=== PATIENT | female | born 1985 | race Hispanic/Latino ===

== ENCOUNTER 2018-06-06 09:45 | Inpatient (IN) | payer MEDICAID, OTHER ==
[2018-06-06 10:12] VITALS: BMI 30.9
--- NOTE | 2018-06-06 10:34 | C.PDOC ---
History Of Present Illness Patient transferred from outside facility for psych admission. Patient reports heroin overdose yesterday requiring narcan. Also reports using crack cocaine yesterday. Currently denying that she overdosed for self harm, and currently denies SI/HI. Complains of migraine, states this is not new, she usually takes Excedrin daily for headaches. No other complaints. Time Seen by Provider: 06/06/18 10:02 Chief Complaint (Nursing): Psychiatric Evaluation History Per: Patient Past Medical History Reviewed: Historical Data, Nursing Documentation, Vital Signs Vital Signs: Last Vital Signs Temp 98.3 F 06/06/18 09:51 Pulse 79 06/06/18 09:51 Resp 18 06/06/18 09:51 BP 122/84 06/06/18 09:51 Pulse Ox 96 06/06/18 09:51 KARLOS Report Viewed: Yes - Medical History PMH: Depression Family History: States: Unknown Family Hx - Social History Hx Alcohol Use: No Hx Substance Use: Yes - Immunization History Hx Tetanus Toxoid Vaccination: No Hx Influenza Vaccination: No Review Of Systems Except As Marked, All Systems Reviewed And Found Negative. Constitutional: Negative for: Fever, Chills Cardiovascular: Negative for: Chest Pain Respiratory: Negative for: Cough, Shortness of Breath Gastrointestinal: Negative for: Nausea, Vomiting Neurological: Positive for: Headache. Negative for: Weakness, Numbness Psych: Negative for: Suicidal ideation Physical Exam - Physical Exam Appears: Well, No Acute Distress Skin: Normal Color, Warm, Dry Head: Atraumatic Eye(s): bilateral: Normal Inspection Oral Mucosa: Moist Chest: Symmetrical Cardiovascular: Rhythm Regular Respiratory: Normal Breath Sounds Gastrointestinal/Abdominal: Normal Exam Extremity: Normal ROM Neurological/Psych: Oriented x3 Gait: Steady ED Course And Treatment O2 Sat by Pulse Oximetry: 96 Medical Decision Making Medical Decision Making: Spoke to crisis, patient can be admitted to psych for major depressive disorder, under Dr. Holloway. Disposition - Disposition Disposition: HOSPITALIZED Disposition Time: 10:30 Condition: GOOD - Clinical Impression Clinical Impression: Major depression
--- NOTE | 2018-06-06 12:22 | PCM.BM ---
<Eve Fuentesn - Last Filed: 06/06/18 12:19> Treatment Plan Problems - Problems identified on initial assessmt Depression Date Initiated: 06/06/18 Time Initiated: 12:20 Assessment reference: NA Status: Active Anxiety related to substance abuse Date Initiated: 06/06/18 Time Initiated: 12:20 Assessment reference: NA Status: Active Ineffective coping Date Initiated: 06/06/18 Time Initiated: 12:20 Assessment reference: NA Status: Active Treatment assets and liabiliti Patient Assests: cooperative, educated, ADL independent, physically healthy, good support system, negotiates basic needs, cognitively intact, strong camilo Patient Liabilities: physical pain, substance abuse - Milieu Protocol Maintain good personal hygiene: daily Encourage regular showers, daily Remind patient to perform daily oral care, daily Assist patient to perform ADL's Conduct patient checks and document Observation sheet: Q15 minutes Maintain personal safety: every shift Educate patient to report safety concerns to staff, every shift Monitor environment for contraband/sharps Medication safety: Monitor for expected outcome, potential side effects: every shift, Assess barriers to learning: every shift, Assess readiness for medication education: every shift <Gaviota Schmidt - Last Filed: 06/08/18 11:40> Family Contact Family involvement: Family/SO is involved Family contact: Patient agrees to contact Family contact name: Lanie Paredes-aunt - Goals for Treatment Patient goals for treatment: "I want to go to rehab." Discharge/Continuing Care - Education Needs Education Needs: Patient Medication, Patient Coping Skills, Patient Placement options, Patient Community resources - Discharge Discharge Criteria: Tolerates medication w/o severe side effects, No longer ex hibiting s/s of withdrawal Discharge to:: Substance Abuse Rehab - Treatment Team Participation Discussed with Family/SO: Yes Was Patient/Family/SO present at Treatment Team Meeting: Yes
[2018-06-06] MEDS ORDERED: Aluminum Hydroxide/Magnesium Hydroxide Susp (30 mL) PO PRN (15:15)
[2018-06-06] MEDS: buPROPion 150 mg/24 Hours XL Tab PO SCH (15:56)
--- NOTE | 2018-06-06 16:30 | PCM.PSYCH ---
Initial Psychiatric Evaluation - Initial Psychiatric Evaluation Type of Admission: Voluntary Legal Status: Capacity Chief Complaint (in patient's own words): I overdosed on heroine. History of Present Illness and Precipitating Events: Patient is a 33 years old, single, unemployed, female who was admitted due to worsening of depression and overdosed on heroin. Patient reported history of depression and anxiety for last 10 years, also history of ADD. Reported compliant with treatment including BuSpar 10 mg twice a day, Cymbalta 60 mg twice a day, gabapentin 800 mg 4 times a day. Patient reported she is in a rehab in [place] for last 13months, came home on pass and relapsed on heroin. Started feeling depressed with decreased sleep and appetite. Denied any previous or current suicidal ideation or homicidal ideations, no suicide attempts. Patient reported hopeless crying at time and gated about relapse. Patient has history of one previous admission. Opioid: Started at 24 years of age, increase gradually and was using 5 bundles of heroin daily, IV. Her last use was yesterday, 2 bags of fentanyl, required Narcan twice according to patient. Patient relapsed. No gas. Of abstinence for 7 months from April to December 2017. History of more than 10 detox and more than 10 rehabs. Patient was also on Suboxone in the past until 1-1/2-year ago. Patient was on Suboxone for over 2 years before that. Cocaine: Started at 21 years of age, 1 $50 per day. Last used yesterday, smoking. Cannabis: Patient reported last use was 18 months ago. Before that she was smoking daily $30 worth every day. Alcohol: Last drink was 18 months ago, before that she was drinking 1 bottle of wine daily. Cigarettes: Smokes 1 pack of cigarettes daily and is requesting for nicotine patch. Patient has history of left knee surgery. Patient has history of shoplifting charges in the past. Not on probation. Patient was born in [place] and has bachelors degree. Her last job was 18 months ago. She is supported by her mother. Never and has no children. Her height is 5 feet 4 inches and weight is 180 pounds. Current Medications: Active Medications Generic Name Dose Route Start Last Admin Trade Name Freq PRN Reason Stop Dose Admin Al Hydrox/Mg Hydrox/Simethicone 30 ml 06/06/18 15:15 Maalox 30 Ml PO TID PRN Indigestion / Heartburn Bupropion HCl 150 mg 06/06/18 15:15 06/06/18 15:56 Wellbutrin Xl PO 150 mg DAILY HELEN Administration Clonidine HCl 0.1 mg 06/06/18 15:15 Catapres PO Q4 PRN COWS Score More or Equal to 5 Dicyclomine HCl 10 mg 06/06/18 15:40 Bentyl PO Q6 PRN Muscle spasm Duloxetine HCl 60 mg 06/06/18 18:00 Cymbalta PO BID HELEN Gabapentin 800 mg 06/06/18 18:00 Neurontin PO QID HELEN Ibuprofen 600 mg 06/06/18 15:15 06/06/18 15:56 Motrin Tab PO 600 mg Q6 PRN Administration Pain, moderate (4-7) Loperamide HCl 2 mg 06/06/18 15:41 Imodium PO Q8 PRN Diarrhea Nicotine 1 patch 06/06/18 15:30 06/06/18 15:55 Nicoderm Cq TD 1 patch DAILY HELEN Administration Ondansetron HCl 4 mg 06/06/18 15:15 Zofran Tab PO Q8 PRN Nausea/Vomiting Pneumococcal Polyvalent Vaccine 0.5 ml 06/08/18 10:00 Pneumovax 23 Vaccine IM 06/08/18 10:01 .ONCE ONE Trazodone HCl 50 mg 06/06/18 22:00 Desyrel PO HS [facility] Past Psychiatric History - Past Psychiatric History Previous Treatment History: Inpatient History of Abuse: None reported History of ETOH/Drug Use: See HPI History of Family Illness: Reported her father is alcoholic and her mother and sister has bipolar disorder. Pertinent Medical Hx (Current Medical&Sleep Prob, Allergies): Allergies Allergy/AdvReac Type Severity Reaction Status Date / Time No Known Allergies Allergy Unverified 06/06/18 09:59 Aspirin/Acetaminophen/Caffeine [Excedrin Extra Strength Caplet] 1 tab TID 06/06/18 DULoxetine [Cymbalta] 60 mg PO BID 06/06/18 Gabapentin [Neurontin] 800 mg PO Q6 06/06/18 Ibuprofen [Motrin Tab] 800 mg PO TID 06/06/18 busPIRone [Buspar] 1 tab BID 06/06/18 Hepatitis C Asthma Fibromyalgia Scoliosis Review of Systems - Psychiatric Psychiatric: As Per HPI, Anxiety, Depression, Hopelessness Mental Status Examination - Personal Presentation Personal Presentation: Looks stated age - Affect Affect: Depressed - Motor Activity Motor Activity: Calm - Reliability in Providing Information Reliability in Providing Information: Fair - Speech Speech: Organized - Mood Mood: Depressed - Formal Thought Process Formal Thought Process: No Impairment - Hallucinations/Delusions Hallucinations: Other (None reported) Delusions: Other - Obsessions/Compulsions Obsessions: None Compulsions: None - Cognitive Functions Orientation: Person, Place, Situation, Time Sensorium: Alert Abstract Thinking: Endeavor Estimate of Intelligence: Average Judgement: Intact, as evidence by: Insight regarding need for hospitalization Memory: Recent intact, as evidence by: Ability to recall events of the day, Remote intact, as evidenced by: Ability to recall historical events - Risk Risk: Withdrawal, Diminished functioning - Strength & Assets Inventory Strength & Assets Inventory: Family support, Cooperative - Limitations Limitations: Other DSM 5 DX - DSM 5 DSM 5 Diagnosis: Major depressive disorder recurrent severe without psychotic features Opioid withdrawal Opiate use disorder severe Cocaine use disorder severe - Recommended/Plan of Treatment Treatment Recommendations and Plan of Treatment: Patient education. Supportive therapy. CBT for relapse prevention. DC for abstinence. Continue home medications. Other PRN medications. Patient wants to go to sober living house for follow-up care after discharge from the hospital. Projected ELOS: 8-10 days - Smoking Cessation Smoking Cessation Initiated: Yes
[2018-06-07] MEDS: buPROPion 150 mg/24 Hours XL Tab PO SCH (09:17)
--- NOTE | 2018-06-07 21:30 | PCM.PYCHPN ---
Psychiatric Progress Note - Psychiatric Progress Note Patient seen today, length of contact: 15-minute Patient Chief Complaint: And feeling little better. Problems Identified/Issues Discussed: Patient seen, chart reviewed, case discussed with the staff. Issues related to illness and treatment were discussed with the patient and staff. Reported compliant with treatment with no adverse effects. Tolerating treatment very well. Patient reported feeling little better. Mood reported as okay. Affect appropriate. Patient needs more time for stabilization. Aftercare discussed with the patient. Denied any delusions, auditory or visual hallucinations, no suicidal ideations or homicidal ideations at the time of evaluation. Medical Problems: Hepatitis C Asthma Fibromyalgia Scoliosis Diagnostic Results: Reviewed DSM 5 Symptoms Update: Some improvement with treatment. Medication Change: No Medical Record Reviewed: Yes Mental Status Examination - Cognitive Function Orientation: Person, Place, Situation, Time Memory: Intact Attention: WNL Concentration: WNL Association: WN Fund of Knowledge: [facility] Decription of patient's judgement and insights: Fair - Mood Mood: Depressed - Affect Affect: Depressed - Speech Speech: Appropriate - Formal Thought Process Formal Thought Process: No Impairment Psychotic Thoughts and Behaviors: None - Suicidal Ideation Suicidal Ideation: No - Homicidal Ideation Homicidal Ideation: No Goal/Treatment Plan - Goal/Treatment Plan Need for Continued Stay: Remain at risks for inpatient hospitalization, Discharge may exacerbated symptoms, Severe functional impairment Progress Toward Problem(s) and Goals/Treatment Plan: Patient education. Supportive therapy. CBT for relapse prevention. ND for abstinence. Continue treatment as before. Patient wants to go to sober living house for follow-up care after discharge from the hospital. Estimated Date of D/C: 06/12/18 - Smoking Cessation Smoking Cessation Initiated: Yes
[2018-06-08] MEDS: buPROPion 150 mg/24 Hours XL Tab PO SCH (09:43)
[2018-06-08] MEDS ORDERED: Pneumococcal 23-Valent Vaccine IM ONE (10:00)
--- NOTE | 2018-06-08 15:41 | PCM.PYCHPN ---
Psychiatric Progress Note - Psychiatric Progress Note Patient seen today, length of contact: 15 minutes Patient Chief Complaint: Feeling much better full Problems Identified/Issues Discussed: Patient seen, chart reviewed, case discussed with the staff. Issues related to illness and treatment were discussed with the patient and staff. Reported compliant with treatment with no adverse effects. Tolerating treatment very well. Patient reported feeling better. Mood reported as okay. Affect appropriate. Patient needs more time for stabilization. Aftercare discussed with the patient. Denied any delusions, auditory or visual hallucinations, no suicidal ideations or homicidal ideations at the time of evaluation. Medical Problems: Hepatitis C Asthma Fibromyalgia Scoliosis Diagnostic Results: Reviewed DSM 5 Symptoms Update: Improving with treatment. Medication Change: No Medical Record Reviewed: Yes Mental Status Examination - Cognitive Function Orientation: Person, Place, Situation, Time Memory: Intact Attention: WNL Concentration: WNL Association: WNL Fund of Knowledge: WN Decription of patient's judgement and insights: Fair - Mood Mood: Depressed (Less than before) - Affect Affect: Depressed - Speech Speech: Appropriate - Formal Thought Process Formal Thought Process: No Impairment Psychotic Thoughts and Behaviors: None - Suicidal Ideation Suicidal Ideation: No - Homicidal Ideation Homicidal Ideation: No Goal/Treatment Plan - Goal/Treatment Plan Need for Continued Stay: Remain at risks for inpatient hospitalization, Discharge may exacerbated symptoms, Severe functional impairment Progress Toward Problem(s) and Goals/Treatment Plan: Patient education. Supportive therapy. CBT for relapse prevention. AR for abstinence. Continue treatment as before. Patient wants to go to sober living house for follow-up care after discharge from the hospital. Estimated Date of D/C: 06/12/18 - Smoking Cessation Smoking Cessation Initiated: Yes
[2018-06-08] MEDS: Benzocaine/Menthol (Cepacol) Lozenge PO PRN (19:09)
[2018-06-09] MEDS: buPROPion 150 mg/24 Hours XL Tab PO SCH (09:03)
[2018-06-09] MEDS: Phenol Topical 1.4% Throat Spray (180 ml) MT PRN ×4 (10:05→21:32)
[2018-06-09] MEDS: guaiFENesin 100 mg/5 ml Syrup UD PO PRN ×3 (10:05→21:32)
[2018-06-09] MEDS: Benzocaine/Menthol (Cepacol) Lozenge PO PRN ×2 (14:58→21:33)
--- NOTE | 2018-06-09 23:45 | PCM.PYCHPN ---
Psychiatric Progress Note - Psychiatric Progress Note Patient seen today, length of contact: 17 Patient Chief Complaint: "I am feeling better today" Problems Identified/Issues Discussed: The pt is seen, chart reviewed, case is discussed with staff. The pt is compliant with medications and reports no side-effects. Symptoms are improving but needs more time to stabilize and to avoid relapse. Pt attends groups and activities. Support given, psycho-education provided. After care discussed. Medication Change: No Medical Record Reviewed: Yes Mental Status Examination - Cognitive Function Orientation: Person, Place, Situation, Time Memory: Intact Attention: WNL Concentration: WNL Association: WNL Fund of Knowledge: WNL - Mood Mood: Neutral - Affect Affect: Constricted, Depressed - Speech Speech: Appropriate - Formal Thought Process Formal Thought Process: No Impairment - Suicidal Ideation Suicidal Ideation: No - Homicidal Ideation Homicidal Ideation: No Goal/Treatment Plan - Goal/Treatment Plan Need for Continued Stay: Remain at risks for inpatient hospitalization, Discharge may exacerbated symptoms, Severe functional impairment Progress Toward Problem(s) and Goals/Treatment Plan: Continue medications Support and psychoeducation daily Attend groups and activities daily Individual therapy After care planning by SANJUANA and the team
[2018-06-10 06:53] VITALS: RESP 18; TEMP 98.1; O2SAT 99
[2018-06-10] MEDS: guaiFENesin 100 mg/5 ml Syrup UD PO PRN ×2 (10:25→22:00)
[2018-06-10] MEDS: buPROPion 150 mg/24 Hours XL Tab PO SCH (10:26)
[2018-06-10] MEDS: Phenol Topical 1.4% Throat Spray (180 ml) MT PRN ×3 (10:26→21:58)
[2018-06-10] MEDS: Benzocaine/Menthol (Cepacol) Lozenge PO PRN ×3 (13:39→20:43)
[2018-06-10 15:50] VITALS: BP 120/85; PULSE 78
[2018-06-11] MEDS: Phenol Topical 1.4% Throat Spray (180 ml) MT PRN (09:26)
[2018-06-11] MEDS: buPROPion 150 mg/24 Hours XL Tab PO SCH (09:26)
[2018-06-11] MEDS: Benzocaine/Menthol (Cepacol) Lozenge PO PRN (09:30)
--- NOTE | 2018-06-11 10:30 | PCM.PYCHDC ---
Mental Status Examination - Mental Status Examination Orientation: Person, Place, Situation, Time Memory: Intact Mood: Neutral Affect: Constricted Speech: Soft Attention: WNL Concentration: WNL Association: WNL Fund of Knowledge: WNL Formal Thought Process: No Impairment Suicidal Ideation: No Current Homicidal Ideation?: No Discharge Summary - Discharge Note Reason for Hospitalization: Patient is a 33 years old, single, unemployed, female who was admitted due to worsening of depression and overdosed on heroin. Patient reported history of depression and anxiety for last 10 years, also history of ADD. Reported compliant with treatment including BuSpar 10 mg twice a day, Cymbalta 60 mg twice a day, gabapentin 800 mg 4 times a day. Patient reported she is in a rehab in [place] for last 13months, came home on pass and relapsed on heroin. Started feeling depressed with decreased sleep and appetite. Denied any previous or current suicidal ideation or homicidal ideations, no suicide attempts. Patient reported hopeless crying at time and gated about relapse. Patient has history of one previous admission. Opioid: Started at 24 years of age, increase gradually and was using 5 bundles of heroin daily, IV. Her last use was yesterday, 2 bags of fentanyl, required Narcan twice according to patient. Patient relapsed. No gas. Of abstinence for 7 months from April to December 2017. History of more than 10 detox and more than 10 rehabs. Patient was also on Suboxone in the past until 1-1/2-year ago. Patient was on Suboxone for over 2 years before that. Cocaine: Started at 21 years of age, 1 $50 per day. Last used yesterday, smoking. Cannabis: Patient reported last use was 18 months ago. Before that she was smoking daily $30 worth every day. Alcohol: Last drink was 18 months ago, before that she was drinking 1 bottle of wine daily. Cigarettes: Smokes 1 pack of cigarettes daily and is requesting for nicotine patch. Patient has history of left knee surgery. Patient has history of shoplifting charges in the past. Not on probation. Patient was born in [place] and has bachelors degree. Her last job was 18 months ago. She is supported by her mother. Never and has no children. Her height is 5 feet 4 inches and weight is 180 pounds. Consultations:: List each consultation separately and include: 1. Reason for request. 2. Findings. 3. Follow-up Summary of Hospital Course include:: 1. Description of specific treatment plan utilized for patients during their course of treatmen. 2. Summarize the time- course for resolution of acute symptoms and/or regressed behaviors. 3. Describe issues identified and worked on during hospitalization. 4. Describe medication utilized. 5. Describe medical problems identified and treated. 6. Reassessment of suicide risk - Final Diagnosis (DSM 5) Condition upon Discharge: GOOD DSM 5: Major depressive disorder recurrent severe without psychotic features Opioid withdrawal Opiate use disorder severe Cocaine use disorder severe Disposition: HOME/ ROUTINE - Smoking Cessation Smoking Cessation Medication prescribed: No - Antipsychotic Medications Pt discharged on 2 or more routine antipsychotic medications: No
== END 2018-06-11 11:47 | disposition home or self-care (01) | DRG 885 ==
LOC: C.ER 09:45 → C.5E 10:36
PROVIDERS: ADMIT Psychiatry & Neurology Psychiatry; ATTEND Psychiatry & Neurology Psychiatry
PROC: GZ56ZZZ Individual Psychotherapy, Supportive (ICD-10-PCS; principal; 2018-06-06)
DX: F33.2 Major depressive disorder, recurrent severe without psychotic features (principal); F11.23 Opioid dependence with withdrawal; F14.20 Cocaine dependence, uncomplicated; F17.210 Nicotine dependence, cigarettes, uncomplicated; G43.909 Migraine, unspecified, not intractable, without status migrainosus; M79.7 Fibromyalgia; J45.909 Unspecified asthma, uncomplicated